=== PATIENT | male | born 1995 | race Caucasian/White ===

== ENCOUNTER 2019-08-09 16:33 | Emergency (ER) | payer SELFPAY ==
[~2019-08-09] VITALS: Ht 172.7 cm; Wt 65.8 kg
[2019-08-09 16:35] VITALS: BP 141/99
--- NOTE | 2019-08-09 16:40 | Emergency Room Report ---
History of Present Illness General Chief Complaint: Substance Abuse Source: Patient Present Illness HPI 23-year-old male presents with altered mental status patient was utilizing heroin prior to arrival, patient was brought in by his stepsister, symptoms are aggravated by heroin relieved by not taking heroin severity is moderate, constant occurred prior to arrival, patient endorses some nausea vomiting, endorses some coffee-ground emesis, sister notes that patient was sticking his finger down his throat. Patient presents for evaluation Allergies: Coded Allergies: No Known Allergies (Unverified , 08/09/19) COVID-19 Screening Contact w/high risk pt: No Recent Travel to affected area: No Experienced COVID-19 symptoms?: No COVID-19 Testing performed PRIVATE PILOT: No Patient History Past Medical History: see triage record Social History: Reports: drug use - Heroin Reviewed Nursing Documentation: PMH: Agreed; PSxH: Agreed Nursing Documentation-PMH Past Medical History: No Stated History History Of Psychiatric Problem: Yes - heroine/ substance abuse Review of Systems All Other Systems: negative except mentioned in HPI Physical Exam General Appearance: well appearing, no apparent distress Head: normocephalic, atraumatic ENT: hearing grossly normal, normal voice Neck: full range of motion, supple Respiratory: no respiratory distress, speaking full sentences Neurologic: alert, normal gait Psychiatric: anxious Skin: no rash Medical Decision Making Diagnostic Impression: Primary Impression: Substance abuse ER Course 23-year-old male presents with altered mental status after utilizing heroin. Patient was given a dose of Narcan, reevaluation at 4:58 PM patient refused chest x-ray, does not want a wait until blood work comes back states he wants to leave AGAINST MEDICAL ADVICE. Patient states he feels completely fine now. The patient has requested to leave the ED against medical advice. The patient reason(s) for leaving include, but are not limited to, the following:"I want to leave." I believe this patient is of sound mind and competent to refuse medical care. The patient is responding and asking questions appropriately. The patient is oriented to person, place and time. The patient is not psychotic, delusional , suicidal, homicidal or hallucinating. The patient demonstrates a normal mental capacity to make decisions regarding their healthcare. The patient is clinically sober and does not appear to be under the influence of any illicit drugs at this time. The patient has been advised of the risks, in layman terms, of leaving AMA which include, but are not limited to , coma, permanent disability, loss of current lifestyle, delay in diagnosis. Alternatives have been offered - the patient remains steadfast in their wish to leave. The patient has been advised that should they change their mind they are welcome to return to this hospital, or any other, at any time. The patient understands that in no way does an AMA discharge mean that I do not want them to have the best medical care available. To this end, I have provided appropriate prescriptions, referrals, and discharge instructions. The patient did sign AMA paperwork. The above discussion was witnessed by another member of staff. Disposition: AGAINST MEDICAL ADVICE Condition: Stable [facility]. [facility] Patient Instructions: Opioid Use Disorder Additional Instructions: The patient was provided with discharge instructions, notified to follow-up with a primary care doctor and or specialist in the next 24-48 hours, and to return to the ED if they have worsening of their symptoms. Please note that this report is being documented using [employer] technology. This can lead to erroneous entry secondary to incorrect interpretation by the dictating instrument. Carlito Teran MD August 09, 2019 16:40
[2019-08-09] MEDS ORDERED: Naloxone 0.4mg/ml Inj IVP ONE (16:45)
[2019-08-09] MEDS ORDERED: DiphenhydrAMINE 50mg/ml Inj IVP ONE (16:45)
[2019-08-09] MEDS ORDERED: Naloxone 1mg/ml 2ml ONE (16:46)
[2019-08-09 16:47] LABS: BASOPHILS % (AUTO) 0.9 % (0.0-2.0); EOSINOPHILS % (AUTO) 0.3 % (0.0-3.0); HEMATOCRIT 43.6 % (42.0-52.0); LYMPHOCYTES % (AUTO) 9.4 % (20.0-45.0); MEAN CORPUSCULAR VOLUME 90 FL (80-99); MONOCYTES % (AUTO) 7.3 % (1.0-10.0); PLATELET COUNT 199 K/UL (150-450); RED BLOOD COUNT 4.86 M/UL (4.70-6.10); RED CELL DISTRIBUTION WIDTH 13.5 % (11.6-14.8); WHITE BLOOD COUNT 13.3 K/UL (4.8-10.8)
[2019-08-09 16:55] VITALS: BP 141/99
[2019-08-09 16:56] LABS: INR 1.1 (0.9-1.1)
[2019-08-09 17:16] LABS: ANION GAP 11 mmol/L (5-15); BLOOD UREA NITROGEN 14 mg/dL (7-18); CALCIUM 9.2 MG/DL (8.5-10.1); CARBON DIOXIDE 30 MMOL/L (21-32); CHLORIDE 99 MMOL/L (98-107); CREATININE 1.1 MG/DL (0.55-1.30); POTASSIUM 3.9 MMOL/L (3.5-5.1); SODIUM 140 MMOL/L (136-145)
[2019-08-09 17:22] LABS: ALANINE AMINOTRANSFERASE 54 U/L (12-78); ALBUMIN 4.5 G/DL (3.4-5.0); ALBUMIN/GLOBULIN RATIO 1.1 (1.0-2.7); ALKALINE PHOSPHATASE 89 U/L (46-116); ASPARTATE AMINO TRANSFERASE 54 U/L (15-37); BILIRUBIN,TOTAL 0.9 MG/DL (0.2-1.0)
== END 2019-08-09 17:00 | disposition left against medical advice (07) ==
LOC: EMR 16:45
DX: F19.10 Other psychoactive substance abuse, uncomplicated (principal); R11.2 Nausea with vomiting, unspecified
CPT/HCPCS: 36415; 80053; 83690; 85025; 85610; 85730; 96361; 96374; 96375; 99284; J1200; J2310; J2405; J7030; S0028